=== PATIENT | female | born 1940 | race Caucasian/White ===

== ENCOUNTER 2017-05-22 01:35 | Emergency (ER) | payer MEDICARE, BC ==
[~2017-05-22] VITALS: Ht 162.6 cm; Wt 71.0 kg
[~2017-05-22 01:35] MED LIST: ASPI-650; ATEN-138; ATEN-51; ATOR10TA23; CELE200C; FELO10TA; GLYB1TAB3; LEVO125T75; LORA-401; MINITRAN; PANT40TA4
[2017-05-22 01:49] VITALS: Ht 162.6 cm; Wt 71.0 kg
--- NOTE | 2017-05-22 05:28 | RADRPT ---
PROCEDURE: Chest. CLINICAL INDICATION: Shortness of breath. TECHNIQUE: Single frontal view of the chest was obtained. COMPARISON: None. FINDINGS: The cardiac silhouette is magnified. The aortic arch is unremarkable. There is no focal consolidat ion, vascular congestion or pleural effusion. There is no pneumothorax. IMPRESSION: No evidence for active cardiopulmonary disease. .Roland Zapata MD, MD Date Time Electronically viewed and signed by .Roland Zapata MD, on 05/22/2017 05:28 .T/
[2017-05-22] MEDS ORDERED: ASPIRIN 81 MG TAB PO ONE (06:00)
[2017-05-22] MEDS ORDERED: ERGO500037 PO (06:12)
[2017-05-22] MEDS ORDERED: OMEP40CA6 PO (06:12)
[2017-05-22] MEDS ORDERED: ASPI-664 PO (06:12)
[2017-05-22] MEDS ORDERED: SITA1TAB5 PO (06:12)
[2017-05-22] MEDS ORDERED: GLIM4TAB PO (06:12)
[2017-05-22] MEDS ORDERED: NITR0.4T6 SL (06:12)
[2017-05-22 06:41] LABS: BASOPHIL # 0.1 10^3/ul (0.0-0.1); EOSINOPHILS # 0.2 10^3/ul (0.0-0.5); EOSINOPHILS % 1.5 % (0.0-7.0); HEMATOCRIT 41.2 % (37.0-47.0); LYMPHOCYTES # 3.5 10^3/ul (0.8-2.9); MEAN CORPUSCULAR HEMOGLOBIN 25.8 pg (29.0-33.0); MEAN CORPUSCULAR HGB CONC 31.6 g/dl (32.0-37.0); MEAN CORPUSCULAR VOLUME 81.9 fl (82.0-101.0); MEAN PLATELET VOLUME 10.5 fl (7.4-10.4); MONOCYTE # 0.6 10^3/ul (0.3-0.9); NEUTROPHIL # 5.9 10^3/ul (1.6-7.5); NEUTROPHILS % 57.3 % (39.0-77.0); PLATELET COUNT 250 10^3/UL (140-415); RED BLOOD COUNT 5.03 10^6/ul (4.20-5.40); RED CELL DISTRIBUTION WIDTH 14.5 % (11.5-14.5); WHITE BLOOD COUNT 10.2 10^3/ul (4.8-10.8)
[2017-05-22 06:49] LABS: ANION GAP 18 (8-16); BLOOD UREA NITROGEN 16 mg/dl (7-20); CALCIUM 10.5 mg/dl (8.4-10.2); CARBON DIOXIDE 26 mmol/L (21-31); CHLORIDE 102 mmol/L (97-110); CREATININE 0.72 mg/dl (0.44-1.00); GLUCOSE 139 mg/dl (70-220); POTASSIUM 4.3 mmol/L (3.5-5.1); SODIUM 142 mmol/L (135-144)
[2017-05-22 07:01] LABS: B-TYPE NATRIURETIC PEPTIDE 204 PG/ML (0-450)
--- NOTE | 2017-05-22 07:03 | ERA ---
ER Documentation Chief Complaint Date/Time DATE: 05/22/17 TIME: 06:56 Chief Complaint pressure like chwst pain radaiting to neck and face HPI 77-year-old female comes emergency room for substernal chest pressure radiating to her mid neck and face about the jaw area. The pain began around 10 last night and is been greater than 8 hours now. She has a history of a stent in her heart. She had shortness of breath associated with the pain. She took a nitroglycerin at home which helped relieve some of the pain but still has ongoing mild pain. She did feel lightheaded for a while. She has less lightheadedness now. She had nausea at the time and no longer has nausea and has not vomited. She saw her xray tech 2 days ago he performed testing and said that she was doing well. She does have yearly outpatient stress tests and has one coming up very soon.. ROS All systems reviewed and are negative except as per history of present illness. Medications Home Meds Reported Medications Ergocalciferol (Vitamin D2) (VITAMIN D2) 50,000 Unit Capsule, 73662 UNIT PO QSATUR, CAP 05/22/17 Sitagliptin Phos/Metformin HCl (Janumet 50-1,000 mg Tablet) 1 Each Tablet, 1 EACH PO WITH BREAKFAST DINNE, TAB 05/22/17 Omeprazole* (Omeprazole*) 40 Mg Capsule.dr, 40 MG PO DAILY, #30 CAP 05/22/17 Glimepiride* (Glimepiride*) 4 Mg Tablet, 4 MG PO WITH BREAKFAST, TAB 05/22/17 Nitroglycerin* (Nitroglycerin* SL) 0.4 Mg Tab.subl, 0.4 MG SL Q5MIN Y for CHEST PAIN, BOTTLE 05/22/17 Aspirin* (Aspirin* EC) 81 Mg Tablet.dr, 81 MG PO DAILY, TAB 05/22/17 Glyburide, Micro-Metformin Hcl (Glucovance) 1 Tab Tablet 05/07/10 Atenolol* (Atenolol*) 25 Mg Tablet 05/06/10 [Minitran] No Conflict Check 12/02/09 Aspirin (Aspirin) 81 Mg Tablet 12/02/09 Pantoprazole* (Pantoprazole*) 40 Mg Tablet. 12/02/09 Atorvastatin (Lipitor) 10 Mg Tablet 12/02/09 Lorazepam* (Ativan*) 1 Mg Tablet 12/02/09 Levothyroxine Sodium* (Levothyroxine Sodium*) 125 Mcg Tablet 12/02/09 Felodipine* (Felodipine*) 10 Mg Tab.sr.24h 12/02/09 Celecoxib* (Celebrex*) 200 Mg Capsule 12/02/09 Atenolol (Tenormin) 25 Mg Tab 12/02/09 Allergies Allergies: Coded Allergies: No Known Drug Allergy (Unverified Allergy, Unknown, 05/22/17) PMhx/Soc History of Surgery: Yes (URINARY BLADDER LIFT,HYSTERECTOMY, angelina) Anesthesia Reaction: No Hx Neurological Disorder: No Hx Respiratory Disorders: No Hx Cardiac Disorders: Yes (SHUNT) Hx Psychiatric Problems: No Hx Miscellaneous Medical Probl: No Hx Alcohol Use: No Hx Substance Use: No Hx Tobacco Use: No Smoking Status: Never smoker Physical Exam Vitals Vital Signs Date Time Temp Pulse Resp B/P Pulse Ox O2 Delivery O2 Flow Rate FiO2 05/22/17 05:45 73 15 167/82 100 Room Air 05/22/17 01:49 97.8 88 20 224/110 99 Physical Exam Const: [] No apparent distress Head: Atraumatic Eyes: Normal Conjunctiva ENT: Normal External Ears, Nose and Mouth. Neck: Full range of motion..~ No meningismus. Resp: Clear to auscultation bilaterally Cardio: Regular rate and rhythm, no murmurs Abd: Soft, non tender, non distended. Normal bowel sounds Skin: No petechiae or rashes Back: No midline or flank tenderness Ext: No cyanosis, or edema Neur: Awake and alert Psych: Normal Mood and Affect Result Diagram: 05/22/1743 05/22/1743 Results 24 hrs Laboratory Tests Test 05/22/17 05:43 White Blood Count 10.210^3/ul Red Blood Count 5.0310^6/ul Hemoglobin 13.0g/dl Hematocrit 41.2% Mean Corpuscular Volume 81.9fl Mean Corpuscular Hemoglobin 25.8pg Mean Corpuscular Hemoglobin Concent 31.6g/dl Red Cell Distribution Width 14.5% Platelet Count 54171^3/UL Mean Platelet Volume 10.5fl Neutrophils % 57.3% Lymphocytes % 34.0% Monocytes % 6.0% Eosinophils % 1.5% Basophils % 1.0% Nucleated Red Blood Cells % 0.0/100WBC Neutrophils # 5.910^3/ul Lymphocytes # 3.510^3/ul Monocytes # 0.610^3/ul Eosinophils # 0.210^3/ul Basophils # 0.110^3/ul Nucleated Red Blood Cells # 0.010^3/ul Prothrombin Time 11.7Sec Prothrombin Time Ratio 0.9 INR International Normalized Ratio 0.86 Activated Partial Thromboplast Time 29.1Sec Sodium Level 142mmol/L Potassium Level 4.3mmol/L Chloride Level 102mmol/L Carbon Dioxide Level 26mmol/L Anion Gap 18 Blood Urea Nitrogen 16mg/dl Creatinine 0.72mg/dl Glucose Level 139mg/dl Calcium Level 10.5mg/dl Troponin I < 0.012ng/ml B-Type Natriuretic Peptide 204PG/ML Current Medications Medications (Trade) Dose Ordered Sig/Minh Route PRN Reason Start Time Stop Time Status Last Admin Dose Admin Aspirin (Aspirin) 324 mg ONCE ONCE PO 05/22/17 06:00 05/22/17 06:01 DC 05/22/17 06:21 Miscellaneous Medication (Gi Cocktail (2)) 40 ml ONCE ONCE PO 05/22/17 08:00 05/22/17 08:01 DC 05/22/17 08:24 Procedures/MDM Atypical chest pain lasting more than 8 hours after which patient had a negative troponin. Nonischemic EKG that was totally normal. I doubt acute coronary syndrome at this time. Because the patient prefers to go home and has excellent primary care follow-up I feel comfortable discharging with strict return precautions to the ER. She was given 3 and 25 mg aspirin. Also given a GI cocktail which did help with the pain. I have very low suspicion for aortic dissection, overwhelming infection, esophageal rupture, Normal sinus rhythm rate of 92, normal axis, no ST or T-wave changes concerning for acute ischemia, normal intervals. campus monitor interpretation: Normal sinus rhythm without arrhythmia Chest x-ray interpretation: I see no acute process. I see no pneumothorax, no pneumonia, no widened mediastinum, no fractures Departure Diagnosis: Primary Impression: Chest pain Condition: Stable TOÑA VALDES May 22, 2017 07:02
[2017-05-22 07:23] LABS: ADD SCAN DIFF NO
[2017-05-22 07:27] LABS: TROPONIN-I < 0.012 ng/ml (0.00-0.12)
[2017-05-22 07:29] LABS: INR 0.86; PARTIAL THROMBOPLASTIN TIME 29.1 Sec (25.0-35.0); PROTIME 11.7 Sec (12.2-14.2); PT RATIO 0.9
[2017-05-22] MEDS ORDERED: LIDOCAINE/MYLANTA 40 ML BTL PO ONE (08:00)
[2017-05-22 09:33] VITALS: BP 154/72; PULSE 74; RESP 19; TEMP 98
== END 2017-05-22 09:50 | disposition home or self-care (01) ==
LOC: E/R 01:35
DX: R07.9 Chest pain, unspecified (principal); R06.02 Shortness of breath; Z79.82 Long term (current) use of aspirin
CPT/HCPCS: 36415; 71010; 80048; 83880; 84484; 85025; 85610; 85730; 93005

== ENCOUNTER 2018-01-08 08:50 | Day surgery (SDC) | END 2018-01-08 11:19 | disposition home or self-care (01) ==